=== PATIENT | female | born 1950 | race Caucasian/White ===

== ENCOUNTER 2016-10-18 06:18 | Day surgery (SDC) | payer MEDICARE ==
[~2016-10-18] VITALS: Ht 160 cm; Wt 98.2 kg
[2016-10-18 06:50] VITALS: BP 157/71; PULSE 84; RESP 20; TEMP 97.9; O2SAT 92
[2016-10-18] MEDS ORDERED: CHLORHEXIDINE GLUCONATE 2 % 1 PACK (2 CLOTHS) TOPICAL SCH (07:00)
[2016-10-18] MEDS ORDERED: VANCOMYCIN 1000 MG/NS 250 ML - implanted port/tunneled catheter IV SCH ×2 (07:00)
[2016-10-18] MEDS ORDERED: POVIDONE IODINE 5% (ANTISEPSIS KIT) 4 APPLICATIONS EACH NARE SCH (07:00)
[2016-10-18] MEDS ORDERED: SODIUM CHLORIDE 0.9% 1000 ML IV SCH (07:00)
[2016-10-18] MEDS ORDERED: LEVO100T5 PO (07:10)
[2016-10-18] MEDS ORDERED: OXCA300T PO (07:10)
[2016-10-18] MEDS ORDERED: NAPR250T PO (07:10)
[2016-10-18] MEDS ORDERED: FLUT1INH INH (07:10)
[2016-10-18] MEDS ORDERED: CITA40TA4 PO (07:10)
[2016-10-18] MEDS ORDERED: STOO100C PO (07:10)
[2016-10-18] MEDS ORDERED: FLUT50SP EACH NARE (07:10)
[2016-10-18] MEDS ORDERED: TUMERIC CURCUMIN PO (07:10)
[2016-10-18] MEDS ORDERED: LOSA100T PO (07:10)
[2016-10-18] MEDS ORDERED: LORA-520 PO (07:10)
[2016-10-18] MEDS ORDERED: AMLO10TA2 PO (07:10)
[2016-10-18] MEDS ORDERED: METO25TA3 PO (07:10)
[2016-10-18] MEDS ORDERED: ZOCO20TA PO (07:10)
[2016-10-18] MEDS ORDERED: OMEP20TA PO (07:10)
[2016-10-18 07:26] LABS: AUTOMATED NEUTROPHIL # 2.9 TH/MM3 (1.8-7.7); BASOPHIL % 1.1 % (0.0-2.0); EOSINOPHIL # 0.1 TH/MM3 (0-0.4); HEMATOCRIT 40.7 % (35.0-46.0); HEMO FLAGS DIFF FINAL; LYMPH % 19.4 % (9.0-44.0); LYMPHOCYTE # 0.9 TH/MM3 (1.0-4.8); MEAN CORPUSCULAR HEMOGLOBIN 30.5 PG (27.0-34.0); MEAN CORPUSCULAR HGB CONC 34.7 % (32.0-36.0); MONO % 11.1 % (0.0-8.0); NEUT % 65.4 % (16.0-70.0); PLATELET COUNT 240 TH/MM3 (150-450); RED BLOOD COUNT 4.63 MIL/MM3 (4.00-5.30); RED CELL DISTRIBUTION WIDTH 13.8 % (11.6-17.2); WHITE BLOOD COUNT 4.5 TH/MM3 (4.0-11.0)
[2016-10-18 07:33] LABS: PROTHROMBIN TIME - PATIENT 11.3 SEC (9.8-11.6)
[2016-10-18] MEDS ORDERED: MIDAZOLAM HCL 5 MG/5 ML VIAL ONE (08:30)
[2016-10-18] MEDS ORDERED: fentaNYL CITRATE 250 MCG/5 ML AMP ONE (08:31)
[2016-10-18] MEDS ORDERED: LIDOCAINE 1%/EPINEPHrine 1:100,000 SOLN 20 ML VIAL ONE (08:42)
[2016-10-18 10:00] VITALS: BP 156/63; PULSE 88; RESP 20; TEMP 97.8; O2SAT 92
[2016-10-18 10:15] VITALS: BP 149/80; PULSE 85; RESP 20; O2SAT 95
[2016-10-18] MEDS ORDERED: SODIUM CHLORIDE 0.9% FLUSH 5 ML FLUSH IVF PRN (10:15)
--- NOTE | 2016-10-18 10:35 | PD.RAD ---
Post Procedure Progress Note Pre Procedure Diagnosis: (1) Lung cancer Post Procedure Diagnosis: (1) Lung cancer Procedure Date: Oct 18, 2016 Supervising Radiologist: Tyrese Munguia Proceduralist/Assist: Angie Garay, RT(R)(CV), Jonah Jones RT(R)() Estimated blood loss: min Anesthesia: Local, Analgesia, Conscious Sedation Plan of Activity Patient to Unit: ROPU Patient Condition: Good See PACS Report for procedural detail/treatment Central Venous Access Device Procedure 1 Right Internal Jugular Infusaport Placement single lumen Slovenian: 8 Tyrese Munguia MD Oct 18, 2016 10:15
[2016-10-18 10:45] VITALS: BP 133/70; PULSE 81; RESP 20; O2SAT 92
[2016-10-18 11:15] VITALS: BP 149/93; PULSE 85; RESP 20; O2SAT 92
[2016-10-18 11:45] VITALS: BP 135/81; PULSE 82; RESP 20; O2SAT 92
[2016-10-19] MEDS ORDERED: TURMCAP PO (09:35)
--- NOTE | 2016-10-19 16:20 | RADRPT ---
EXAM DATE/TIME: 10/18/2016 08:46 [facility] COMPARISON: No previous studies available for comparison. INDICATIONS : Patient with history of lung cancer in need of port placement. MEDICAL HISTORY : 1.HTN 2.Lung cancer 3.COPD 4.Osteoarthritis 5.Hypothyroidism 6.Seizures 7.Hepatitis C SURGICAL HISTORY : 1.Choley 2.Cerebral aneurysm repeir ENCOUNTER: Initial ACUITY: 2 weeks PAIN SCORE: 0/10 FLUORO TIME: 0.8 minutes SEDATION TIME: 40 minutes ACCESS: Right internal jugular vein SEDATION: 1.) 3 mg midazolam (Versed) IV 2.) 175 mcg fentanyl (Sublimaze) IV Prophylactic antibiotics were administered with appropriate pre-procedure timing. Vancomycin within 2 hours of procedure, Ancef (or alternative) within 1 hour of procedure. DEVICE: 1. 8 Pakistani single lumen Bard Power Port PROCEDURE : 1. Continuous pulse oximetry and EKG monitoring. 2. Intravenous conscious sedation. 3. Ultrasound guidance for venous access. 4. Fluoroscopic guided implantable central venous port placement. The patient was placed supine. The neck was prepped in sterile fashion. Full sterile technique was u sed, including cap, mask, sterile gloves and gown, and a large sterile sheet. Hand hygiene and 2% ch lorhexidine Betadine was utilized per protocol for cutaneous antisepsis with appropriate dry time for site. The skin and subcutaneous tissues were infiltrated with local anesthetic solution. Under direct ultrasound guidance, central venous access was accomplished in the targeted vessel. The ultrasound images depicting access guidance were stored and saved to PACS for permanent record. A s ubcutaneous pocket was created using blunt dissection. The port was introduced to the pocket. The c atheter tubing was fed through a subcutaneous tunnel to the venotomy site. The catheter tubing was c ut to a suitable length and then was introduced through a valved Peel-Away sheath and positioned with catheter tubing tip at the cavo-atrial junction level. The pocket incision was closed with subcutic ular Vicryl suture. Steri-Strips were applied. The port was flushed and locked with heparin solutio n per protocol. Sterile dressing was applied to the site. The patient tolerated the procedure well. Conscious sedation was performed with the prescribed dosages and duration as above. The patient harlan ated the procedure well and there were no complications. EKG and oximetry remained stable throughout the procedure. The patient was sent to post anesthesia recovery in stable condition. CONCLUSION: Uncomplicated ultrasound and fluoroscopic guided implanted central venous port catheter placement as described in detail above. An 8 Pakistani Power port was placed. Tyrese Munguia MD on October 19, 2016 at 16:19 Board Certified Radiologist. This report was verified electronically.
== END 2016-10-18 12:00 | disposition home or self-care (01) ==
LOC: HROP 06:18 → HRIP 06:19 → HROP 12:00
PROVIDERS: ATTEND Internal Medicine
DX: C34.90 Malignant neoplasm of unspecified part of unspecified bronchus or lung (principal); I10 Essential (primary) hypertension; J44.9 Chronic obstructive pulmonary disease, unspecified; E03.9 Hypothyroidism, unspecified; Z87.891 Personal history of nicotine dependence
CPT/HCPCS: 36561; 76937; 77001; 85025; 85610; 85730; 99152; 99153; C1788; J1642; J2250; J3010; J3370; J7030; J7050

== ENCOUNTER 2017-01-28 10:37 | Emergency (ER) | payer MEDICARE ==
[~2017-01-28 10:37] MED LIST: AMLO10TA2 PO; CITA40TA4 PO; FLUT1INH INH; FLUT50SP EACH NARE; LEVO100T5 PO; LORA-520 PO; LOSA100T PO; METO25TA3 PO; NAPR250T PO; OMEP20TA PO; OXCA300T PO; STOO100C PO; TURMCAP PO; ZOCO20TA PO
[2017-01-28 10:51] VITALS: BP 157/79; PULSE 97; RESP 18; TEMP 98.9; O2SAT 98
[2017-01-28] MEDS ORDERED: SODIUM CHLORIDE 0.9% FLUSH 10 ML FLUSH IVF PRN (11:00)
--- NOTE | 2017-01-28 11:01 | PD ---
HPI . Paresthesias Chief Complaint: Neuro Symptoms/ Deficits Time Seen by Provider: 10:51 Travel History International Travel<30 days: No Contact w/Intl Traveler<30days: No Traveled to known affect area: No History of Present Illness HPI Patient presents with a chief complaint of paresthesias involving the right arm and right leg. Symptoms were noted on awakening at 7 PM. Symptoms have persisted but have improved. Patient denies any associated headache. She has blurred vision and nausea related to current chemotherapy. She reports no change in the symptoms. Pertinent medical history is that she has lung cancer. She also has a history of previous cerebral aneurysm. She has resultant seizure disorder. She also has some residual right-sided weakness. PFSH Past Medical History Cancer: Yes (LUNG CANCER) Cardiovascular Problems: No Chemotherapy: Yes Diabetes: No Endocrine: No Genitourinary: No Hepatitis: Yes (HEP C STATES CURED) Hiatal Hernia: No Immune Disorder: No Musculoskeletal: No Neurologic: Yes (CEREBRAL ANEURISM 2010 SEIXURES) Psychiatric: No Reproductive: No Respiratory: Yes (COPD ASTHMA) Thyroid Disease: Yes Past Surgical History Abdominal Surgery: Yes (CHOLEY) AICD: No Cardiac Surgery: No Ear Surgery: No Endocrine Surgery: No Eye Surgery: No Genitourinary Surgery: No Gynecologic Surgery: No Joint Replacement: No Oral Surgery: No Pacemaker: No Thoracic Surgery: No Social History Tobacco Use: No Substance Use: Yes (MARIJUANA) Allergies-Medications (Allergen,Severity, Reaction): Coded Allergies: Penicillin (Verified Allergy, Severe, Hives, 01/28/17) Monosodium Glutamate (Verified Allergy, Unknown, 01/28/17) STATES SEPSIS Reported Meds & Prescriptions Reported Meds & Active Scripts Active Reported Turmeric Curcumin ([employer]) 1 Cap 1,300 Mg PO DAILY Stool Softener (Docusate Sodium) 100 Mg Cap 1 Tab PO DAILY Zocor (Simvastatin) 20 Mg Tab 20 Mg PO HS Citalopram (Citalopram Hydrobromide) 40 Mg Tab 40 Mg PO DAILY Losartan (Losartan Potassium) 100 Mg Tab 100 Mg PO DAILY Metoprolol Tartrate 25 Mg Tab 25 Mg PO DAILY Breo Ellipta Inh (Fluticasone/Vilanterol) 100-25 Mcg/Act Inh 1 Puff INH DAILY Use daily at the same time. Fluticasone Nasal [place] 50 Mcg/Act Naspr 50 Mcg EACH NARE BID 50 mcg/spray Allergy (Loratadine) 10 Mg Tab 1 Tab PO Naproxen 250 Mg Tab 250 Mg PO BID Oxcarbazepine 300 Mg Tab 300 Mg PO TID Omeprazole 20 Mg Tab 20 Mg PO DAILY Levothyroxine (Levothyroxine Sodium) 100 Mcg Tab 200 Mcg PO DAILY Amlodipine (Amlodipine Besylate) 10 Mg Tab 10 Mg PO DAILY Review of Systems Except as stated in HPI: all other systems reviewed are Neg General / Constitutional: No: Fever, Chills Eyes: Positive: Blurred Vision, No: Diploplia HENT: No: Headaches, Vertigo, Lightheadedness Cardiovascular: No: Chest Pain or Discomfort Respiratory: Positive: Shortness of Breath Gastrointestinal: Positive: Nausea, No: Vomiting, Diarrhea Neurologic: Positive: Paresthesia, No: Weakness, Dizziness Physical Exam Narrative GENERAL: Patient is bald and is wearing a head cover. She does not appear to be in any acute distress. SKIN: Warm and dry. HEAD: Atraumatic. Normocephalic. EYES: Pupils equal and round. Extraocular movements are intact. ENT: No nasal bleeding or discharge. Mucous membranes pink and moist. NECK: Trachea midline. Neck is supple. CARDIOVASCULAR: Regular rate and rhythm. RESPIRATORY: No accessory muscle use. GASTROINTESTINAL: Abdomen soft, non-tender, nondistended. MUSCULOSKELETAL: No obvious deformities. No edema. NEUROLOGICAL: Awake and alert. No obvious cranial nerve deficits. Mild right- sided weakness. Normal speech. PSYCHIATRIC: Appropriate mood and affect; insight and judgment normal. Data Data Last Documented VS Vital Signs Date Time Temp Pulse Resp B/P Pulse Ox O2 Delivery O2 Flow Rate FiO2 01/28/17 13:46 96 16 146/96 97 Room Air 01/28/17 10:51 98.9 Orders Complete Blood Count With Diff (01/28/17 10:51) Basic Metabolic Panel (Bmp) (01/28/17 10:51) Ct Brain W/O Iv Contrast(Rout) (01/28/17 10:51) Cta Brain W Iv Contrast W 3d (01/28/17 10:51) Iv Access Insert/Monitor (01/28/17 10:51) Sodium Chloride 0.9% Flush (Ns Flush) (01/28/17 11:00) Cta Neck W Iv Contrast W 3d (5/19/17 ) Iohexol 350 Inj (Omnipaque 350 Inj) (01/28/17 12:24) Heparin Central Flush (Heparin Central F (01/28/17 14:00) Labs Laboratory Tests Test 01/28/17 11:00 White Blood Count 3.5 TH/MM3 Red Blood Count 3.04 MIL/MM3 Hemoglobin 10.0 GM/DL Hematocrit 29.1 % Mean Corpuscular Volume 95.8 FL Mean Corpuscular Hemoglobin 32.8 PG Mean Corpuscular Hemoglobin 34.2 % Concent Red Cell Distribution Width 19.5 % Platelet Count 269 TH/MM3 Mean Platelet Volume 7.9 FL Neutrophils (%) (Auto) 75.6 % Lymphocytes (%) (Auto) 15.3 % Monocytes (%) (Auto) 2.1 % Eosinophils (%) (Auto) 2.6 % Basophils (%) (Auto) 4.4 % Neutrophils # (Auto) 2.6 TH/MM3 Lymphocytes # (Auto) 0.5 TH/MM3 Monocytes # (Auto) 0.1 TH/MM3 Eosinophils # (Auto) 0.1 TH/MM3 Basophils # (Auto) 0.2 TH/MM3 CBC Comment DIFF FINAL Differential Comment Sodium Level 137 MEQ/L Potassium Level 4.1 MEQ/L Chloride Level 101 MEQ/L Carbon Dioxide Level 27.8 MEQ/L Anion Gap 8 MEQ/L Blood Urea Nitrogen 17 MG/DL Creatinine 0.57 MG/DL Estimat Glomerular Filtration 106 ML/MIN Rate Random Glucose 115 MG/DL Calcium Level 8.3 MG/DL MDM Medical Decision Making Medical Screen Exam Complete: Yes Emergency Medical Condition: Yes Medical Record Reviewed: Yes (her only medical records in our system or related to her lung cancer. She has not been treated surgically and there are no plans to treat her surgically. She has just finished chemotherapy. She will start radiation therapy in the near future.) Interpretation(s) EKG shows a normal sinus rhythm with no ST segment elevation or depression. No EKGs for comparison. Differential Diagnosis My differential diagnosis of paresthesias includes but is not limited to anxiety , radiculopathy, peripheral neuropathy, peripheral vascular disease, compartment syndrome Narrative Course Patient presents complaining with right-sided paresthesias. She has a history of lung cancer. Therefore, metastatic disease needs to be ruled out. She also has a history of previous cerebral aneurysm. I have ordered a CT of her head as well as a CTA of her head. CBC & BMP Diagram 01/28/17 11:00 Last Impressions Head CTA 01/28/17 1051 Signed Impressions: Service Date/Time: Saturday, January 28, 2017 11:51 - CONCLUSION: 1. Postsurgical changes as above. 2. No aneurysms identified Alan Miller MD Head CT 01/28/17 1051 Signed Impressions: Service Date/Time: Saturday, January 28, 2017 11:51 - CONCLUSION: 1. No evidence of acute intracranial pathology. No masses are identified. 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 Aneurysm coiling as above Alan Miller MD Diagnosis Primary Impression: Paresthesia of right arm and leg Patient Instructions: General Instructions, Paresthesia (ED) Disposition: 01 DISCHARGE HOME Condition: Stable Yesica Wolfe MD January 28, 2017 11:01
[2017-01-28 11:19] LABS: AUTOMATED NEUTROPHIL # 2.6 TH/MM3 (1.8-7.7); BASOPHIL # 0.2 TH/MM3 (0-0.2); BASOPHIL % 4.4 % (0.0-2.0); EOSINOPHIL # 0.1 TH/MM3 (0-0.4); EOSINOPHIL % 2.6 % (0.0-4.0); HEMATOCRIT 29.1 % (35.0-46.0); HEMO FLAGS DIFF FINAL; LYMPH % 15.3 % (9.0-44.0); LYMPHOCYTE # 0.5 TH/MM3 (1.0-4.8); MEAN CELL VOLUME 95.8 FL (80.0-100.0); MEAN CORPUSCULAR HEMOGLOBIN 32.8 PG (27.0-34.0); MEAN CORPUSCULAR HGB CONC 34.2 % (32.0-36.0); MONO % 2.1 % (0.0-8.0); NEUT % 75.6 % (16.0-70.0); PLATELET COUNT 269 TH/MM3 (150-450); RED BLOOD COUNT 3.04 MIL/MM3 (4.00-5.30); RED CELL DISTRIBUTION WIDTH 19.5 % (11.6-17.2); WHITE BLOOD COUNT 3.5 TH/MM3 (4.0-11.0)
[2017-01-28 11:27] LABS: POTASSIUM 4.1 MEQ/L (3.5-5.1)
[2017-01-28 11:30] LABS: BICARBONATE 27.8 MEQ/L (21.0-32.0)
--- NOTE | 2017-01-28 12:15 | RADHPO ---
EXAM DATE/TIME: 01/28/2017 11:51 [facility] COMPARISON: No previous studies available for comparison. INDICATIONS : Parathesias of right arm and leg since 7am today. RADIATION DOSE: 49.7 CTDIvol (mGy) MEDICAL HISTORY : Aneurysm, intracranial. Chronic obstructive pulmonary disease. Carcinoma, lung.Hep C. Seizures. SURGICAL HISTORY : Cerebral aneurysm clips. ENCOUNTER: Initial ACUITY: 1 day PAIN SCALE: 0/10 LOCATION: cranial TECHNIQUE: Multiple contiguous axial images were obtained of the head. Using automated exposure control and adj ustment of the mA and/or kV according to patient size, radiation dose was kept as low as reasonably a chievable to obtain optimal diagnostic quality images. FINDINGS: There are aneurysm coils in the region of the basilar apex and in the left middle cerebral artery tri furcation. There is encephalomalacia involving the left temporal lobe as well as the insular cortex. No acute hemorrhage is identified. No effective fluid collections are evident. Posterior fossa struct ures are unremarkable. CONCLUSION: 1. No evidence of acute intracranial pathology. No masses are identified. 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 Aneurysm coiling as above Alan Miller MD on January 28, 2017 at 12:12 Board Certified Radiologist. This report was verified electronically.
[2017-01-28] MEDS ORDERED: IOHEXOL 350 MG/ML 10 ML VIAL (for RAD DIAG) IV ONE (12:24)
--- NOTE | 2017-01-28 13:31 | RADHPO ---
EXAM DATE/TIME: 01/28/2017 11:51 [facility] COMPARISON: No previous studies available for comparison. INDICATIONS : Parathesias of right arm and leg since 7am today. IV CONTRAST: 100 cc Omnipaque 350 (iohexol) IV RADIATION DOSE: 42.77 CTDIvol (mGy) ; Combined studies MEDICAL HISTORY : Carcinoma, lung. Chronic obstructive pulmonary disease. Aneurysm, intracranial.Seizures. Hep C. Ast hma. Hypertension. SURGICAL HISTORY : Appendectomy. Cholecystectomy.Cerebral aneurysm clips. ENCOUNTER: Initial ACUITY: 1 day PAIN SCALE: 1/10 LOCATION: cranial TECHNIQUE: Volumetric scanning was performed using a multi-row detector CT scanner. The data was post processed with a variety of visualization algorithms including full volume maximum intensity projection, multi -planar sliding thin slab reformation, curved planar reformation, and surface rendering techniques. Using automated exposure control and adjustment of the mA and/or kV according to patient size, radiat ion dose was kept as low as reasonably achievable to obtain optimal diagnostic quality images. FINDINGS: There is coiling of aneurysm in the left middle cerebral artery trifurcation as well as stent-assiste d coiling of a basilar aneurysm. No residual aneurysm is identified. No intracranial stenosis is seen . The vertebral arteries are codominant. No other aneurysms are identified. CONCLUSION: 1. Postsurgical changes as above. 2. No aneurysms identified Alan Miller MD on January 28, 2017 at 13:27 Board Certified Radiologist. This report was verified electronically.
[2017-01-28 13:46] VITALS: BP 146/96; PULSE 96; RESP 16; O2SAT 97
--- NOTE | 2017-01-28 14:16 | RADHPO ---
EXAM DATE/TIME: 01/28/2017 11:51 [facility] COMPARISON: No previous studies available for comparison. INDICATIONS : Parathesias of right arm and leg since 7am today. IV CONTRAST: 100 cc Omnipaque 350 (iohexol) IV ; Cumulative dose for multiple exams. RADIATION DOSE: 42.77 CTDIvol (mGy) ; Combined studies MEDICAL HISTORY : Carcinoma, lung. Chronic obstructive pulmonary disease. Aneurysm, intracranial.Hypertension. Hep C. Asthma. SURGICAL HISTORY : Appendectomy. Cholecystectomy.Cerebral aneurysm clip. ENCOUNTER: Initial ACUITY: 1 day PAIN SCALE: 2/10 LOCATION: cranial Elevated flow velocities and ICA/CCA ratios have been found to correlate with increased degrees of vessel stenosis, calculated as percentage of diameter relative to a normal segment of distal ICA/CCA. TECHNIQUE: Volumetric scanning was performed using a multirow detector CT scanner. The data was post processed with a variety of visualization algorithms including full-volume maximum intensity projection, multip lanar sliding thin-slab reformation, curved-planar reformation, and surface-rendering techniques. Us ing automated exposure control and adjustment of the mA and/or kV according to patient size, radiatio n dose was kept as low as reasonably achievable to obtain optimal diagnostic quality images. FINDINGS: AORTIC ARCH: There is a three-vessel origin of the great vessels from the aorta. Scattered calcification of the ar ch with no ostial stenosis of the arch vessels. RIGHT CAROTID: The common carotid artery is intact. The carotid bulb has a normal configuration without ulceration o r narrowing. Tortuosity of the internal some calcification proximally but no significant stenosis. T he external carotid artery is intact. LEFT CAROTID: The common carotid artery is intact. The carotid bulb has a normal configuration without ulceration or narrowing. Tortuosity of the internal calcification proximally but no significant stenosis. The e xternal carotid artery is intact. VERTEBRALS: The vertebral arteries have a symmetric diameter. Scattered atherosclerotic calcification with no sig nificant stenosis. CONCLUSION: 1. Scattered atherosclerotic calcification of the arch vessels, proximal internals bilaterally and th e vertebrals with no significant stenosis. 2. Tortuosity of the internal carotids bilaterally. Tyrese Munguia MD on January 28, 2017 at 14:02 Board Certified Radiologist. This report was verified electronically.
--- NOTE | 2017-01-29 15:49 | EKG ---
Date Performed: 01/28/2017 Time Performed: 10:37:20 PTAGE: 66 years EKG: Sinus rhythm . Lateral ST changes are nonspecific Borderline ECG NO PREVIOUS TRACING DOCTOR: Latasha Lindsay Interpretating Date/Time 01/29/2017 15:47:07
== END 2017-01-28 14:12 | disposition home or self-care (01) ==
LOC: PHED 10:37
DX: R20.2 Paresthesia of skin (principal); R94.31 Abnormal electrocardiogram [ECG] [EKG]; H53.8 Other visual disturbances; R11.0 Nausea; C34.90 Malignant neoplasm of unspecified part of unspecified bronchus or lung; Z79.899 Other long term (current) drug therapy; Z86.79 Personal history of other diseases of the circulatory system; Z86.69 Personal history of other diseases of the nervous system and sense organs; Z87.09 Personal history of other diseases of the respiratory system
CPT/HCPCS: 70450; 70496; 70498; 80048; 85025; 93005; 99284; J1642; Q9967

== ENCOUNTER 2017-03-07 14:23 | Emergency (ER) | payer MEDICARE ==
[~2017-03-07] VITALS: Ht 165.1 cm; Wt 94.0 kg
[2017-03-07 14:35] VITALS: BP 155/99; PULSE 108; PULSE 98; RESP 16; TEMP 97.7; O2SAT 96; O2SAT 99
[2017-03-07] MEDS ORDERED: STOO100C PO (14:49)
[2017-03-07] MEDS ORDERED: LOSA100T PO (14:49)
[2017-03-07] MEDS ORDERED: CITA40TA4 PO (14:49)
[2017-03-07] MEDS ORDERED: NAPR250T PO (14:49)
[2017-03-07] MEDS ORDERED: ZOCO20TA PO (14:49)
[2017-03-07] MEDS ORDERED: METO25TA3 PO (14:49)
[2017-03-07] MEDS ORDERED: ADVA250A INH (14:49)
[2017-03-07] MEDS ORDERED: TURM500C3 PO (14:50)
[2017-03-07] MEDS ORDERED: PERC5TAB12 PO ×2 (14:50→15:20)
--- NOTE | 2017-03-07 15:14 | PD ---
HPI Chief Complaint: Pain: Acute or Chronic Time Seen by Provider: 14:35 Travel History International Travel<30 days: No Contact w/Intl Traveler<30days: No Traveled to known affect area: No History of Present Illness HPI Our patient is a 66 y.o. F with a hx of lung CA presenting with upper back pain that started last after waking up in the morning. She describes the pain as a dull ache that becomes sharp with movement. She localizes the pain to the upper half of her back. It is non-radiating and not present at rest. However , she notes the pain is becoming worse when it does occur. She tried taking her oxycodone for the pain but it helps minimally. In addition to movement, inspiration worsens the pain. She denies history of trauma. She does report having a history of seizures, last occurring 1 month ago. This last episode occurred while sitting at home, and she remembers waking up on the floor. Afterwards, she had some lower back pain. That pain has since resolved. She thinks the pain she has today developed from her seizure. Patient is still being treated for her lung cancer with chemotherapy. She reports having changes in her vision, nausea and vomiting from her treatments. She is also being treated for HTN, hypothyroid and seizures. She denies history of DVT, PE. 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 Smoked 1 ppd for 45-50 years. PFSH Past Medical History Asthma: Yes Cancer: Yes (Lung) Cardiac Catheterization: Yes Cardiovascular Problems: No High Cholesterol: Yes Chemotherapy: Yes (Last January 2017) COPD: Yes Diabetes: No Endocrine: No GERD: Yes Genitourinary: No Hepatitis: Yes (C, treated ) Hiatal Hernia: No Hypertension: Yes Immune Disorder: No Implanted Vascular Access Dvce: Yes (Right chest power port ) Musculoskeletal: No Neurologic: Yes (CEREBRAL ANEURISM 2010 SEIXURES) Psychiatric: No Reproductive: No Respiratory: Yes (COPD ASTHMA) Immunizations Current: Yes Seizures: Yes Thyroid Disease: Yes Tetanus Vaccination: < 5 Years Influenza Vaccination: Yes ?: Not Ovarian Cysts: Yes Past Surgical History Abdominal Surgery: Yes (TA[place]) AICD: No Cardiac Surgery: No Cholecystectomy: Yes Ear Surgery: No Endocrine Surgery: No Eye Surgery: No Genitourinary Surgery: No Gynecologic Surgery: No Joint Replacement: No Neurologic Surgery: Yes (Cerebral aneurysm ) Oral Surgery: No Pacemaker: No Thoracic Surgery: No Other Surgery: Yes Social History Alcohol Use: No Tobacco Use: No Substance Use: No (Denies today) Allergies-Medications (Allergen,Severity, Reaction): Coded Allergies: Penicillin (Verified Allergy, Severe, Hives, 03/07/17) Monosodium Glutamate (Verified Adverse Reaction, Severe, "Sepsis", 03/07/17 ) Reported Meds & Prescriptions Reported Meds & Active Scripts Active Percocet (Oxycodone-Acetaminophen) 5-325 mg Tab 1 Tab PO TID PRN Reported Turmeric (Turmeric (Curcuma Longa)) 500 Mg Cap 1,300 Mg PO BID Stool Softener (Docusate Sodium) 100 Mg Cap 1 Cap PO HS Zocor (Simvastatin) 20 Mg Tab 20 Mg PO HS Citalopram (Citalopram Hydrobromide) 40 Mg Tab 40 Mg PO DAILY Metoprolol Tartrate 25 Mg Tab 25 Mg PO DAILY Losartan (Losartan Potassium) 100 Mg Tab 100 Mg PO DAILY Naproxen 250 Mg Tab 220 Mg PO BID Advair Diskus Inh (Fluticasone-Salmeterol Inh) 250-50 Mcg/Blist Aer 1 Puff INH BID Rinse mouth after use. Oxcarbazepine 300 Mg Tab 300 Mg PO TID Omeprazole 20 Mg Tab 20 Mg PO DAILY Levothyroxine (Levothyroxine Sodium) 100 Mcg Tab 200 Mcg PO DAILY Amlodipine (Amlodipine Besylate) 10 Mg Tab 10 Mg PO DAILY Review of Systems Except as stated in HPI: all other systems reviewed are Neg Physical Exam Narrative GENERAL: 66 yo F pleasant WNWD mild distress 2/2 pain SKIN: Warm and dry. HEAD: Atraumatic. Normocephalic. EYES: Pupils equal and round. No scleral icterus. No injection or drainage. ENT: No nasal bleeding or discharge. Mucous membranes pink and moist. NECK: Trachea midline. No JVD. CARDIOVASCULAR: Regular rate and rhythm. RESPIRATORY: No accessory muscle use. Clear to auscultation. Breath sounds equal bilaterally. GASTROINTESTINAL: Abdomen soft, non-tender, nondistended. Hepatic and splenic margins not palpable. MUSCULOSKELETAL: Extremities without clubbing, cyanosis, or edema. No obvious deformities. TTP L trapezius. 5/5 hand lip reading teacher bilaterally. NEUROLOGICAL: Awake and alert. No obvious cranial nerve deficits. Motor grossly within normal limits. Five out of 5 muscle strength in the arms and legs. Normal speech. PSYCHIATRIC: Appropriate mood and affect; insight and judgment normal. Data Data Last Documented VS Vital Signs Date Time Temp Pulse Resp B/P Pulse Ox O2 Delivery O2 Flow Rate FiO2 03/07/17 14:35 97.7 98 16 155/99 99 VS reviewed Orders Oxycodone-Acetamin 5-325 Mg (Percocet (03/07/17 15:30) MDM Medical Decision Making Medical Screen Exam Complete: Yes Emergency Medical Condition: Yes Medical Record Reviewed: Yes Differential Diagnosis myofascial strain, muscle spasm, chronic pain, radiculopathy Narrative Course Pt has muscle spasm of the L trapezius muscles. Pain controlled. Pt ready for discharge. Return precautions discussed. Diagnosis Primary Impression: Strain of left trapezius muscle Qualified Code: S46.812A - Strain of left trapezius muscle, initial encounter Referrals: Primary Care Physician 2 days Additional Instructions: You have a choice when it comes to health care, and we are glad that you chose [facility]. Hopefully, we have met your expectations on today's visit. You are welcome to return to [facility] at any time, as we are committed to meeting the health care needs of our community. Med/Other Pt SpecificInfo: Prescription(s) given Scripts Oxycodone-Acetaminophen (Percocet)5-325 mg Tab1 Tab PO TID PRN (PAIN) #20 TAB Ref 0 Prov:Salazar Regalado MD 03/07/17 Disposition: 01 DISCHARGE HOME Condition: Stable Salazar Regalado MD Mar 07, 2017 15:14
[2017-03-07] MEDS ORDERED: oxyCODONE/ACETAMINOPHEN 5 MG/325 MG TAB PO ONE (15:30)
== END 2017-03-07 16:00 | disposition home or self-care (01) ==
LOC: PHED 14:23
DX: S46.812A Strain of other muscles, fascia and tendons at shoulder and upper arm level, left arm, initial encounter (principal); X58.XXXA Exposure to other specified factors, initial encounter; J45.909 Unspecified asthma, uncomplicated; E78.00 Pure hypercholesterolemia, unspecified; J44.9 Chronic obstructive pulmonary disease, unspecified; I10 Essential (primary) hypertension; R56.9 Unspecified convulsions; Z85.118 Personal history of other malignant neoplasm of bronchus and lung
CPT/HCPCS: 99283

== ENCOUNTER 2017-03-12 11:11 | Emergency (ER) | payer MEDICARE ==
[~2017-03-12] VITALS: Ht 165.1 cm; Wt 94.8 kg
[~2017-03-12 11:11] MED LIST changes: +ADVA250A INH; -FLUT1INH INH; -FLUT50SP EACH NARE; -LORA-520 PO; +PERC5TAB12 PO; +TURM500C3 PO; -TURMCAP PO
[2017-03-12 11:14] VITALS: BP 154/89; PULSE 83; RESP 15; TEMP 97.9; O2SAT 98
[2017-03-12] MEDS ORDERED: ROBA500T PO (11:38)
--- NOTE | 2017-03-12 11:38 | PD ---
HPI Chief Complaint: Back/ Neck Pain or Injury Time Seen by Provider: 11:10 Travel History International Travel<30 days: No Contact w/Intl Traveler<30days: No Traveled to known affect area: No History of Present Illness HPI 66 -year-old female presents emergency department for reevaluation of the left trapezius muscle spasm. She was seen on Tuesday and treated for upper back strain of left trapezius muscle spasm prescribed oxycodone and discharged home. Patient reports oxycodone helps with the pain but she still feels as if muscle is spasming. She is requesting a muscle relaxer. She denies chest pain , shortness of breath, cough, fever, abdominal pain. She reports the pain is located within the left trapezius muscle, nonradiating, spasming in nature, unrelieved with current pain medication, exacerbated by movement of the left upper extremity. PFSH Past Medical History Asthma: Yes Cancer: Yes (Lung) Cardiac Catheterization: Yes Cardiovascular Problems: No High Cholesterol: Yes Chemotherapy: Yes (Last January 2017) COPD: Yes Diabetes: No Diminished Hearing: No Endocrine: No GERD: Yes Genitourinary: No Hepatitis: Yes (C, treated ) Hiatal Hernia: No Hypertension: Yes Immune Disorder: No Implanted Vascular Access Dvce: Yes (Right chest power port ) Musculoskeletal: No Neurologic: Yes (CEREBRAL ANEURISM 2010 SEIXURES) Psychiatric: No Reproductive: No Respiratory: Yes (COPD ASTHMA) Immunizations Current: Yes Seizures: Yes Thyroid Disease: Yes Tetanus Vaccination: Unknown Influenza Vaccination: Yes ?: Not Ovarian Cysts: Yes Past Surgical History Abdominal Surgery: Yes (CHOLEY) AICD: No Cardiac Surgery: No Cholecystectomy: Yes Ear Surgery: No Endocrine Surgery: No Eye Surgery: No Genitourinary Surgery: No Gynecologic Surgery: No Joint Replacement: No Neurologic Surgery: Yes (Cerebral aneurysm ) Oral Surgery: No Pacemaker: No Thoracic Surgery: No Other Surgery: Yes Social History Alcohol Use: No Tobacco Use: No Substance Use: No (Denies today) Allergies-Medications (Allergen,Severity, Reaction): Coded Allergies: Penicillin (Verified Allergy, Severe, Hives, 03/12/17) Monosodium Glutamate (Verified Adverse Reaction, Severe, "Sepsis", 03/12/17) Reported Meds & Prescriptions Reported Meds & Active Scripts Active Robaxin (Methocarbamol) 500 Mg Tab 500 Mg PO TID PRN Percocet (Oxycodone-Acetaminophen) 5-325 mg Tab 1 Tab PO TID PRN Reported Turmeric (Turmeric (Curcuma Longa)) 500 Mg Cap 1,300 Mg PO BID Stool Softener (Docusate Sodium) 100 Mg Cap 1 Cap PO HS Zocor (Simvastatin) 20 Mg Tab 20 Mg PO HS Citalopram (Citalopram Hydrobromide) 40 Mg Tab 40 Mg PO DAILY Metoprolol Tartrate 25 Mg Tab 25 Mg PO DAILY Losartan (Losartan Potassium) 100 Mg Tab 100 Mg PO DAILY Naproxen 250 Mg Tab 220 Mg PO BID Advair Diskus Inh (Fluticasone-Salmeterol Inh) 250-50 Mcg/Blist Aer 1 Puff INH BID Rinse mouth after use. Oxcarbazepine 300 Mg Tab 300 Mg PO TID Omeprazole 20 Mg Tab 20 Mg PO DAILY Levothyroxine (Levothyroxine Sodium) 100 Mcg Tab 200 Mcg PO DAILY Amlodipine (Amlodipine Besylate) 10 Mg Tab 10 Mg PO DAILY Review of Systems Except as stated in HPI: all other systems reviewed are Neg General / Constitutional: No: Fever Eyes: No: Visual changes HENT: No: Headaches Cardiovascular: No: Chest Pain or Discomfort Respiratory: No: Shortness of Breath Gastrointestinal: No: Abdominal Pain Genitourinary: No: Dysuria Skin: No Rash Neurologic: No: Weakness Physical Exam Narrative GENERAL: Well-nourished, well-developed patient. SKIN: Focused skin assessment warm/dry. HEAD: Normocephalic. EYES: No scleral icterus. No injection or drainage. NECK: Supple, trachea midline. No JVD or lymphadenopathy. Trapezius muscle spasm and point tenderness CARDIOVASCULAR: Regular rate and rhythm without murmurs, gallops, or rubs. RESPIRATORY: Breath sounds equal bilaterally. No accessory muscle use. GASTROINTESTINAL: Abdomen soft, non-tender, nondistended. MUSCULOSKELETAL: No cyanosis, or edema. BACK: Nontender without obvious deformity. No CVA tenderness. Data Data Last Documented VS Vital Signs Date Time Temp Pulse Resp B/P Pulse Ox O2 Delivery O2 Flow Rate FiO2 03/12/17 11:14 97.9 83 15 154/89 98 MDM Medical Decision Making Medical Screen Exam Complete: Yes Emergency Medical Condition: Yes Differential Diagnosis Left trapezius muscle spasm, upper back strain Narrative Course 66 female presents emergency department for reevaluation of the left trapezius muscle spasm. She was seen on Tuesday and treated for upper back strain of left trapezius muscle spasm prescribed oxycodone and discharged home. Patient reports oxycodone helps with the pain but she still feels as if muscle is spasming. She is requesting a muscle relaxer. She denies chest pain, shortness of breath, cough, fever, abdominal pain. On exam she does have a left appeases muscle spasm. Patient will be discharged home with a prescription for Robaxin. She has follow-up appointment with her doctor on Tuesday. Return precautions discussed. She agrees to plan Diagnosis Primary Impression: Trapezius muscle spasm Referrals: Primary Care Physician Additional Instructions: Take the muscle relaxer as needed for left trapezius muscle spasm. Applied heat and/or ice. Keep her follow-up appointment on Tuesday with her doctor. Return to emergency department if he developed new or worsening symptoms. Scripts Methocarbamol (Robaxin)500 Mg [id number] Mg PO TID PRN (MUSCLE SPASM) #20 TAB Prov:Imani Duncan 03/12/17 Disposition: DISCHARGE HOME Condition: Stable Imani Duncan Mar 12, 2017 11:38
== END 2017-03-12 11:50 | disposition home or self-care (01) ==
LOC: PHEFT 11:11
DX: M62.838 Other muscle spasm (principal)
CPT/HCPCS: 99283